=== PATIENT | male | born 1960 | race Caucasian/White ===

== ENCOUNTER 2017-11-08 10:08 | Day surgery (SDC) | payer OTHER ==
[~2017-11-08] VITALS: Ht 165.1 cm; Wt 91.0 kg
[~2017-11-08 10:08] MED LIST: ACET500 PO; ALBU90OI INH; ALLO100 PO; ANDROGEL1.25 GM TD; ANDROGEL2.5 GM TD; ARIP20 PO; ASCO500 PO; ASPI81CH PO; Advil100 MG PO; Androgel5 GM TOP; B Complex #11 EACH PO; BACL10 PO; BACL20 PO; BUME2 PO; CALCAVITD PO; CALCIUM 500 +1 EAC2 PO; CALCIUM WITH V1 EACH PO; CARV25 PO; CARV6.25 PO; CHLO4 PO; CHOL10002 PO; CLARITIN10 MG PO; COLCHICINE0.6 MG PO; COLCRYS0.6 MG PO; Calcarb 600 W-1 EACH PO; DOCU100 PO; DULO60; DULO60 PO; Desyrel50 MG PO; FAMO20 PO; FINA5 PO; FISH1000 PO; FLAX PO; FURO40 PO; Fish Oil500 MG PO; Flonase 0.05% N16 GM; HYDACE10B PO; HYDHCL25 PO; Hydrocodone-Ap1 EA20 PO; INDO25 PO; K-Tab10 MEQ PO; LORA10 PO; MAGOXI400 PO; MEGA BIOTIN10000 MCG PO; METPRE4 PO; MOMENI; MORP15ER PO; MORP30ER PO; MORP60ER PO; MOVANTIK12.5 MG PO; Morphine Sulfat15 MG PO; NAPR220 PO; NITR.4SL SL; NITR.6SL SL; NYSTRITC TOP; POTA10T PO; Percocet 5-3251 EACH PO; RANI150 PO; SIME80CH PO; SPIR25 PO; Selenium100 MCG PO; Senna Plus Tab1 EACH PO; THEO PO; THEO400ER PO; TOPI50 PO; TRANYLCYPROMINE10 MG; TRANYLCYPROMINE10 MG PO; TRAZ150T57; VALS80 PO; Vitamin B Comple1 EA PO; Zofran Odt8 MG SL; [UNRECOGNIZED DRUG - OTHER] PO; [UNRECOGNIZED DRUG - OTHER] PO
== END 2017-11-08 22:45 | disposition home or self-care (01) ==
LOC: MHTC 10:08
PROC: 3E033TZ Introduction of Destructive Agent into Peripheral Vein, Percutaneous Approach (ICD-10-PCS; principal; 2017-11-08)
DX: I83.891 Varicose veins of right lower extremity with other complications (principal); I87.2 Venous insufficiency (chronic) (peripheral); I50.9 Heart failure, unspecified
CPT/HCPCS: 36466; 99152; J2250; J3010; J7030; J7040

== ENCOUNTER → 2021-03-20 | Outpatient (CLI) | payer OTHER ==
[2021-03-20 19:38] LABS: Phosphorus, Urine 49.3 mg/dL (20.0-60.0)
[2021-03-20 19:48] LABS: Protein, Urine Quantitative 8.1 mg/dL (0.0-11.9)
[2021-03-20 19:50] LABS: Microalbumin, Urine Quant. 5.1 mg/L (0.000-20.000)
== END | disposition home or self-care (01) ==
LOC: LAB SHORT 10:00
PROVIDERS: Internal Medicine Nephrology
DX: N18.2 Chronic kidney disease, stage 2 (mild) (principal); D63.1 Anemia in chronic kidney disease; N25.81 Secondary hyperparathyroidism of renal origin; E55.9 Vitamin D deficiency, unspecified; E78.00 Pure hypercholesterolemia, unspecified; R76.9 Abnormal immunological finding in serum, unspecified; R94.5 Abnormal results of liver function studies; G60.9 Hereditary and idiopathic neuropathy, unspecified
CPT/HCPCS: 81050; 82043; 82570; 83935; 84105; 84156

== ENCOUNTER 2021-12-12 08:09 | Inpatient (IN) | payer OTHER ==
[~2021-12-12] VITALS: Ht 165.1 cm; Wt 90.7 kg
[~2021-12-12 08:09] MED LIST changes: -B Complex #11 EACH PO; -CLARITIN10 MG PO; +INDOCIN PO; +LORA10ER PO; -THEO PO; +THEO400 PO
[2021-12-12 10:50] LABS: Albumin, Blood 3.5 g/dL (3.4-5.0); Albumin/Globulin Ratio 0.8 (0.8-1.8); Bilirubin, Total 0.4 mg/dL (0.1-1.0); Bun/Creatinine Ratio 30.6 (12.0-20.0); Calcium, Blood 9.4 mg/dL (8.5-10.1); Creatinine, Blood 0.69 mg/dL (0.60-1.20); Globulin, Blood 4.5 g/dL (2.2-4.0); Magnesium, Blood 2.5 mg/dL (1.6-2.4); Potassium, Blood 4.3 mmol/L (3.5-5.5)
[2021-12-12 11:09] LABS: BASOPHILS ABSOLUTE AUTO 0.04 K/mm3 (0.00-0.23); BASOPHILS PERCENT AUTO 1 % (0-2); EOSINOPHILS ABSOLUTE AUTO 0.35 K/mm3 (0.00-0.68); EOSINOPHILS PERCENT AUTO 6 % (0-6); Hemoglobin 12.7 g/dL (13.5-17.5); IMMATURE GRAN ABSOLUTE AUTO 0.05 K/mm3 (0.00-0.10); IMMATURE GRAN PERCENT AUTO 1 % (0-1); LYMPHOCYTES ABSOLUTE AUTO 1.02 K/mm3 (0.84-5.20); LYMPHOCYTES PERCENT AUTO 18 % (21-46); MONOCYTES PERCENT AUTO 16 % (4-13); Mean Corpuscular HGB 31.8 pg (26.0-34.0); Mean Corpuscular HGB Conc 31.8 g/dL (31.5-36.5); Mean Corpuscular Volume 100 fL (80-100); Mean Platelet Volume 10.5 fL (9.1-12.4); NEUTROPHILS PERCENT AUTO 59 % (41-73); Platelet Count 260 K/mm3 (150-400); RDW Coefficient Variation 13.7 % (11.7-14.2); RDW Standard Deviation 50.6 fL (35.1-46.3); White Blood Cell Count 5.76 K/mm3 (4.00-11.30)
[2021-12-12] MEDS ORDERED: BUME1 PO (18:04)
--- NOTE | 2021-12-12 18:45 | NUR ---
SHIFT SUMMARY PT ARRIVED INTHE ROOMAT 1800. HE IS PARALYSED IN HIS LEFT ARM AND VERY FRAGILE ON THAT SIDE.PT IS CHAIR BOUND AND ON 4L AT BASELINE. HE DENIES PAIN. HE HAS A LARGE ULCER ON HIS LOWER RIGHT LEG THAT HIS SAYS IS FROM HIS BLISTERS SSWELLING AND POPPING. RIGHT LEG +4 AND LEFT LEG +3 EDEMA AND PAINFUL. PT IS AXO X4. HE IS ABLE TO WALK 1 PERSON ASSISTANCE TO THE BATHROOM FOR BMS AND USES THE URINAL NEEDED. ALL MEDICATIONS UPDATED IN JUN. PT STATES THAT HE CANNOT LAY DOWN FLAT AND WOULD LIKE TO JUST REMAIN IN THE CHAIR SO BED WAS MOVED SO THAT PT COULD SLEEPIN IN THE CHAIR. CHAIR LOCKED IN PLACE, CALL LIHGT IN REACH AND IN THE ROOM.
--- NOTE | 2021-12-13 04:36 | NUR ---
SHIFT SUMMARY PT WAS ABLE TO SLEEP THROUGHOUT THE NIGHT. PT DID HAVE A 15 BEAT RUN OF VTACH, HOWEVER HE WAS ASYMPTOMATIC AND CONTINUED TO STAY ASLEEP. DR. LINDSAY WAS CONTACTED AND A [facility] LAB WAS ORDERED FOR THIS AM. STAYED WITH PT TONIGHT, SHE IS HIS CAREGIVER. IS CONCERNED WITH BEING PRESENT WHEN PT IS BEING GIVEN MEDICATIONS. PT HAS NO COMPLAINTS CURRENTLY. CALL LIGHT IS WITHIN HIS REACH.
[2021-12-13 05:30] LABS: BASOPHILS ABSOLUTE AUTO 0.06 K/mm3 (0.00-0.23); BASOPHILS PERCENT AUTO 1 % (0-2); EOSINOPHILS ABSOLUTE AUTO 0.31 K/mm3 (0.00-0.68); EOSINOPHILS PERCENT AUTO 6 % (0-6); Hematocrit 43.7 % (37.0-53.0); Hemoglobin 13.6 g/dL (13.5-17.5); IMMATURE GRAN ABSOLUTE AUTO 0.06 K/mm3 (0.00-0.10); IMMATURE GRAN PERCENT AUTO 1 % (0-1); LYMPHOCYTES ABSOLUTE AUTO 1.24 K/mm3 (0.84-5.20); LYMPHOCYTES PERCENT AUTO 26 % (21-46); MONOCYTES ABSOLUTE AUTO 0.72 K/mm3 (0.16-1.47); MONOCYTES PERCENT AUTO 15 % (4-13); Mean Corpuscular HGB 31.7 pg (26.0-34.0); Mean Corpuscular HGB Conc 31.1 g/dL (31.5-36.5); Mean Corpuscular Volume 102 fL (80-100); Mean Platelet Volume 10.7 fL (9.1-12.4); NEUTROPHILS ABSOLUTE AUTO 2.45 K/mm3 (1.96-9.15); NEUTROPHILS PERCENT AUTO 51 % (41-73); Platelet Count 278 K/mm3 (150-400); RDW Coefficient Variation 13.9 % (11.7-14.2); RDW Standard Deviation 52.3 fL (35.1-46.3); Red Blood Cell Count 4.29 M/mm3 (4.30-5.90); White Blood Cell Count 4.84 K/mm3 (4.00-11.30)
[2021-12-13 05:54] LABS: Bun/Creatinine Ratio 27.6 (12.0-20.0); Calcium, Blood 9.1 mg/dL (8.5-10.1); Creatinine, Blood 0.73 mg/dL (0.60-1.20); Magnesium, Blood 2.5 mg/dL (1.6-2.4); Potassium, Blood 3.8 mmol/L (3.5-5.5)
--- NOTE | 2021-12-13 16:49 | NUR ---
SHIFT SUMMARY PT IS AxOx4. PLEASANT AND COOPERATIVE WITH CARE. PT HAD ECHO PERFORMED TODAY. PT IS DIURESING WITH IV LASIX. BLE +2-3 THIS SHIFT. PT , TISH IN ROOM THIS SHIFT. IS PATIENT'S CAREGIVER, UPDATED ON PLAN OF CARE. PT REPORTS CHRONIC PAIN IN BACK/HIPS/NECK. MEDICATED PER EMAR. PT REPORTS. WOUND CARE PROVIDED ON RLE ULCER. PER PROFESSIONAL [employer]ENEFITS SALES CONSULTANT, HR SR AT 94 WITH BBB. PT CURRENTLY SITTING UP IN RECLINER. PT STATES HE "FEELS LIKE HE NEEDS PHYSICAL THERAPY," AND THAT HIS BACK IS "EXTRA STIFF AND SORE." VITALS REVIEWED. CALL LIGHT IN REACH. PT DENIES ANY NEEDS AT THIS TIME.
--- NOTE | 2021-12-13 21:47 | NUR ---
MIGRATORY WORKER CALLED AND STS PT HAVING SOME ST ELEVATION IN LEAD 3. EKG DONE, PER DR FLORES, AND RESULTS CALLED TO HER. DR ORDERED A TROPONIN LAB, BUT NO OTHER ORDERS AT THIS TIME.
--- NOTE | 2021-12-14 03:48 | NUR ---
SHIFT SUMMARY EMAIL ADMINISTRATOR CALLED EARLIER IN THE EVENING TO SAY THAT THE PT HAD SOME ST CHANGES ON HIS TELEMETRY. CALLED THE DR AND DID AN EKG AND HAD A TROPONIN DRAWN FROM LAB. NO OTHER ORDERS WERE GIVEN AT THAT TIME. PT ASYMPTOMATIC, RESTING IN HIS RECLINER WATCHING TV WITH HIS . PT DID COMPLAIN OF SOME BACK PAIN, WHICH IS NORMAL FOR HIM, AND WAS MEDICATED PER EMAR. PT RESTING COMFORTABLY AT THIS TIME AND HAS NO COMPLAINTS. CALL LIGHT IS WITHIN HIS REACH.
[2021-12-14 04:41] LABS: BASOPHILS ABSOLUTE AUTO 0.08 K/mm3 (0.00-0.23); BASOPHILS PERCENT AUTO 1 % (0-2); EOSINOPHILS ABSOLUTE AUTO 0.38 K/mm3 (0.00-0.68); EOSINOPHILS PERCENT AUTO 6 % (0-6); Hematocrit 45.1 % (37.0-53.0); Hemoglobin 14.1 g/dL (13.5-17.5); IMMATURE GRAN ABSOLUTE AUTO 0.08 K/mm3 (0.00-0.10); IMMATURE GRAN PERCENT AUTO 1 % (0-1); LYMPHOCYTES ABSOLUTE AUTO 1.25 K/mm3 (0.84-5.20); LYMPHOCYTES PERCENT AUTO 20 % (21-46); MONOCYTES ABSOLUTE AUTO 1.03 K/mm3 (0.16-1.47); MONOCYTES PERCENT AUTO 16 % (4-13); Mean Corpuscular HGB 31.6 pg (26.0-34.0); Mean Corpuscular HGB Conc 31.3 g/dL (31.5-36.5); Mean Corpuscular Volume 101 fL (80-100); Mean Platelet Volume 10.5 fL (9.1-12.4); NEUTROPHILS ABSOLUTE AUTO 3.56 K/mm3 (1.96-9.15); NEUTROPHILS PERCENT AUTO 56 % (41-73); Platelet Count 291 K/mm3 (150-400); RDW Coefficient Variation 13.7 % (11.7-14.2); RDW Standard Deviation 51.6 fL (35.1-46.3); Red Blood Cell Count 4.46 M/mm3 (4.30-5.90); White Blood Cell Count 6.38 K/mm3 (4.00-11.30)
[2021-12-14 05:06] LABS: Albumin, Blood 3.2 g/dL (3.4-5.0); Anion Gap 6 mmol/L (6-16); Blood Urea Nitrogen 24 mg/dL (8-24); Bun/Creatinine Ratio 27.8 (12.0-20.0); CO2, Blood 33 mmol/L (21-32); Calcium, Blood 9.3 mg/dL (8.5-10.1); Chloride, Blood 102 mmol/L (98-108); Creatinine, Blood 0.86 mg/dL (0.60-1.20); Glomerular Filtration Rate 97 (60-); Glucose, Blood 130 mg/dL (70-99); Magnesium, Blood 2.4 mg/dL (1.6-2.4); Phosphorus, Blood 3.2 mg/dL (2.5-4.9); Potassium, Blood 3.4 mmol/L (3.5-5.5); Sodium, Blood 141 mmol/L (136-145)
--- NOTE | 2021-12-14 15:32 | NUR ---
SHIFT SUMMARY PT SLEEPING DURING SHIFT REPORT AND DID NOT WANT PT WOKE. CONTINUED TO REFUSE PT CARE FOR VS AND MEDS UNTIL PT WAS AWAKE. P/T HERE AT BREAKFAST AND PT WOKE, DECLINING TO WORK WITH P/T D/T PAIN IN L ANKLE. NO INJURY TO ANKLE REPORTED. STATED THAT PT HAS HX OF GOUT AND PAIN IS POSSIBLY D/T GOUT FLARE UP. DR JURADO IN TO SEE AND ASSESS PT. XRAY OF L ANKLE ORDERED [facility] FOR URIC ACID LEVEL. CARDIOLOGY CONSULT CALLED TO DR CLARK THIS AM AT 1025 AND AGAIN THIS AFTERNOON AT 1530 DR CLARK STILL NOT HERE TO SEE PT. PT SLEEPING IN RECLINER CHAIR ALL NIGHT AND DAY; DOES NOT LIKE TO SLEEP IN BED. BLE'S VERY SWOLLEN FROM BEING DEPENDENT AROUND THE CLOCK. PT ENCOURAGED TO ELEVATE THEM AND PT ASSISTED BACK, BUT ONLY REMAINED RECLINED 5 MINS AND THEN SAT BACK UP, WITH FEET BACK DOWN ON FLOOR. PT'S ENCOURAGED TO NOTIFY STAFF OF URINE OUTPUT FOR CHARTING, RATHER THAN EMPTY URINAL HERSELF. HAS BEEN DOING THAT TODAY. DRSG TO R ANKLE CHANGED PER 'S REQUEST. REPORTED WOUND TO R ANKLE D/T LRG BLISTER FROM WEEPING EDEMA TO LE'S. PT MEDICATED PER EMAR FOR C/O PAIN "EVERYWHERE", INCLUDING NECK TO LOW BACK. RESTING QUIETY AT THIS TIME. DENIED FURTHER NEEDS. CALL LT IN REACH.
--- NOTE | 2021-12-15 05:20 | NUR ---
SHIFT SUMMARY AOX4. VSS. TELE NSR c BBB HR 99. REPORTS 4/10 CHRONIC PAIN IN BACK, HIPS, MEDICATED c SCHEDULED MS CONTIN & PT ABLE TO SLEEP WELL T/O NIGHT. DENIES N/V. REPORTS OCC DYSPNEA c MINIMAL ACTIVITY, INCLUDING MOVING IN CHAIR. SPO2 >92% ON 4L O2 OR CPAP WHILE ASLEEP. LS DIM c CRACKLES IN BASES. +3 EDEMA RLE, +2 EDEMA LLE. ENCOURAGED PT TO KEEP FEET ELEVATED WHILE IN RECLINER. STRICT I/O OBTAINED, CURRENTLY HAS 1790 URINE OUTPUT. AT BEDSIDE T/O NIGHT TO ASSIST c CARE. CALL LIGHT IN REACH, WILL MONITOR.
[2021-12-15 05:40] LABS: BASOPHILS ABSOLUTE AUTO 0.02 K/mm3 (0.00-0.23); BASOPHILS PERCENT AUTO 0 % (0-2); EOSINOPHILS ABSOLUTE AUTO 0.02 K/mm3 (0.00-0.68); EOSINOPHILS PERCENT AUTO 0 % (0-6); Hematocrit 40.5 % (37.0-53.0); Hemoglobin 12.9 g/dL (13.5-17.5); IMMATURE GRAN ABSOLUTE AUTO 0.08 K/mm3 (0.00-0.10); IMMATURE GRAN PERCENT AUTO 1 % (0-1); LYMPHOCYTES ABSOLUTE AUTO 0.44 K/mm3 (0.84-5.20); LYMPHOCYTES PERCENT AUTO 5 % (21-46); MONOCYTES ABSOLUTE AUTO 0.68 K/mm3 (0.16-1.47); MONOCYTES PERCENT AUTO 8 % (4-13); Mean Corpuscular HGB 31.9 pg (26.0-34.0); Mean Corpuscular HGB Conc 31.9 g/dL (31.5-36.5); Mean Corpuscular Volume 100 fL (80-100); Mean Platelet Volume 10.7 fL (9.1-12.4); NEUTROPHILS ABSOLUTE AUTO 7.63 K/mm3 (1.96-9.15); NEUTROPHILS PERCENT AUTO 86 % (41-73); Platelet Count 299 K/mm3 (150-400); RDW Coefficient Variation 13.4 % (11.7-14.2); Red Blood Cell Count 4.04 M/mm3 (4.30-5.90); White Blood Cell Count 8.87 K/mm3 (4.00-11.30)
[2021-12-15 06:03] LABS: Albumin, Blood 3.1 g/dL (3.4-5.0); Anion Gap 2 mmol/L (6-16); Blood Urea Nitrogen 29 mg/dL (8-24); Bun/Creatinine Ratio 33.9 (12.0-20.0); CO2, Blood 35 mmol/L (21-32); Chloride, Blood 102 mmol/L (98-108); Creatinine, Blood 0.86 mg/dL (0.60-1.20); Glomerular Filtration Rate 97 (60-); Glucose, Blood 114 mg/dL (70-99); Phosphorus, Blood 3.3 mg/dL (2.5-4.9); Potassium, Blood 4.1 mmol/L (3.5-5.5); Sodium, Blood 139 mmol/L (136-145)
--- NOTE | 2021-12-15 15:30 | NUR ---
SHIFT SUMMARY PT RESTING QUIETLY AT START OF SHIFT. IN RM NOT WANTING PT TO BE WOKE UP EARLY. PT IS VERY PLEASANT AND CO-OP WITH CARE. IMPROVING TODAY WITH GOOD URINE OUTPUT YESTERDAY. BP ALSO IMPROVED SOME. PT ABLE TO KEEP LE'S ELEVATED A GOOD PORTION OF THE NIGHT LAST NIGHT WHICH HE AND HIS REPORTED WAS VERY HELPFUL WITH THE SWELLING IN HIS LEGS. DR CLARK CALLED TO CK ON PT WELL; NEW ORDERS PLACED, SEE CHART. PT AWAKE MOST OF THE DAY TODAY AND VERY CHEERFUL, VISITING WITH AND STAFF. HR HAS BEEN WNL'S TODAY WELL; NO CALLS FROM TE[facility] REPORTING ELEVATED HR. PT DENIED FURTHER NEEDS. HOPING TO GO HOME SOON. CALL LT IN REACH.
--- NOTE | 2021-12-15 15:35 | NUR ---
Initial palliative care consult: Kyle is a 61 year old gentleman with a history of a TBI and L-sided injury at age 1, diaphragmatic paralysis, bipolar depression, chronic hypoxia with 4 l/min home O2 and bipap use, kyphosis, CHF, restrictive lung disease and an implanted spinal stimulator. He was admitted on 12/12/21 with a CHF exacerbation. Kyle is . He and his , Lary, live [place] two story house. They do not have any children. They have a large network of friends through their christianity. Kyle is a [employer]. He reports that he had been feeling quite poorly prior to this hospital admission. He states he has chronic pain that seems to be the worst in the mornings. He has a spinal stimulator and takes PO pain medications for his pain. He reports that he tries to ride his bike for exercise to help with his mobility and decrease his pain. He reports that he sleeps in a recliner at home and has done so for many years. He is independent with eating, dressing, and bathing. He reports a shower takes him about 30 minutes. His is willing to assist with bathing however he states that he would like to remain as independent as possible for as long as possible. He states his breathing has improved quite a bit during this admission. He has questions about medications and dosages for when he goes home. Explained that he will receive verbal and written instructions at discharge about his medications, follow up appointments, and general care at home. He states that he doesn't weigh himself daily at home anymore. "I like food too much and it's depressing." He states he can tell when he is starting to retain fluid based on his swelling and his breathing. Discussed ways to care for himself at home to help prevent a CHF exacerbation admission. He states that he is interested in the [facility] program when he goes home. Explained that the CM (per their note) has already contacted the [facility] program with his information. He reports he is very happy with the care he has received here. He has no further questions. He is a DNR and he has an AD on file from 2015 stating his wishes. PC to remain available for symptom management prn.
[2021-12-16 04:55] LABS: BASOPHILS ABSOLUTE AUTO 0.02 K/mm3 (0.00-0.23); BASOPHILS PERCENT AUTO 0 % (0-2); EOSINOPHILS ABSOLUTE AUTO 0.02 K/mm3 (0.00-0.68); EOSINOPHILS PERCENT AUTO 0 % (0-6); Hematocrit 40.3 % (37.0-53.0); Hemoglobin 12.7 g/dL (13.5-17.5); IMMATURE GRAN ABSOLUTE AUTO 0.11 K/mm3 (0.00-0.10); IMMATURE GRAN PERCENT AUTO 1 % (0-1); LYMPHOCYTES ABSOLUTE AUTO 0.63 K/mm3 (0.84-5.20); LYMPHOCYTES PERCENT AUTO 7 % (21-46); MONOCYTES PERCENT AUTO 9 % (4-13); Mean Corpuscular HGB 31.2 pg (26.0-34.0); Mean Corpuscular HGB Conc 31.5 g/dL (31.5-36.5); Mean Corpuscular Volume 99 fL (80-100); Mean Platelet Volume 10.5 fL (9.1-12.4); NEUTROPHILS ABSOLUTE AUTO 7.21 K/mm3 (1.96-9.15); NEUTROPHILS PERCENT AUTO 82 % (41-73); Platelet Count 278 K/mm3 (150-400); RDW Coefficient Variation 13.7 % (11.7-14.2); RDW Standard Deviation 49.4 fL (35.1-46.3); Red Blood Cell Count 4.07 M/mm3 (4.30-5.90); White Blood Cell Count 8.79 K/mm3 (4.00-11.30)
[2021-12-16 05:16] LABS: Albumin, Blood 2.9 g/dL (3.4-5.0); Anion Gap 4 mmol/L (6-16); Blood Urea Nitrogen 29 mg/dL (8-24); Bun/Creatinine Ratio 37.6 (12.0-20.0); CO2, Blood 33 mmol/L (21-32); Calcium, Blood 8.8 mg/dL (8.5-10.1); Chloride, Blood 102 mmol/L (98-108); Creatinine, Blood 0.77 mg/dL (0.60-1.20); Glomerular Filtration Rate 101 (60-); Glucose, Blood 126 mg/dL (70-99); Phosphorus, Blood 2.9 mg/dL (2.5-4.9); Potassium, Blood 3.8 mmol/L (3.5-5.5); Sodium, Blood 139 mmol/L (136-145)
[2021-12-16] MEDS ORDERED: ALLO100 PO (11:12)
--- NOTE | 2021-12-16 19:01 | NUR ---
END OF SHIFT SUMMARY: PATIENT REPORTED PAIN IN THIS BLE, BUT PATIENT REPORTED THAT THE PAIN IN IS LEFT ANKLE WAS IMPROVED. PATIENT WAS ABLE TO STAND AND WORK WITH PHYSICAL THERAPY. PATIENT ABLE TO STAND INDEPENDENTLY WITH FURNITURE BESIDE TO STABILIZE NEEDED. PATIENT CONTINUES TO HAVE CLEAR, YELLOW URINE. PATIENT CONTINUES TO REPORT IMPROVED BREATHING. NO SHORTNESS OF BREATH NOTED AT REST OR WITH ACTIVITY. PATIENT'S LUNG SOUNDS CLEAR THROUGHOUT THE SHIFT. PROVIDED PATIENT AND HIS WITH EDUCATION ABOUT HEART FAILURE, LOW SODIUM DIET AND FLUID RESTRICTION. THEY ARE RECEPTIVE AND OPEN TO LEARNING NEW INFORMATION TO BETTER MANAGE THE PATIENT'S HEALTH.
--- NOTE | 2021-12-17 17:44 | NUR ---
SHIFT SUMMARY NO ACUTE CHANGES DURING SHIFT. PT ALERT AND ORIENTED, FOLLOWS COMMANDS.PT REMAINS ON 4L NC, SPO2 > 92%. IV DIURETICS, TRANSITION TO PO TOMORROW IN ANTICIPATION OF D/C. FAMILY AT BEDSIDE MOST OF DAY. CALL LIGHT WITHIN REACH.
--- NOTE | 2021-12-18 04:45 | NUR ---
SHIFT SUMMARY NO ACUTE CHANGES THIS SHIFT. AOX3. VSS. TELEL NSR HR 73. DENIES N/V OR DYSPNEA. REPORTS 5/10 CHRONIC PAIN IN HIPS, BACK, NECK MEDICATED c SCHEDULED MS CONTIN & NO FURTHER PAIN REPORTED. PT SLEPT SOUNDLY T/O NIGHT. @BEDSIDE. PLAN TO DC HOME c HH TODAY. CALL LIGHT IN REACH & PT ABLE TO MAKE NEEDS KNOWN.
[2021-12-18 05:15] LABS: Bun/Creatinine Ratio 36.5 (12.0-20.0); Calcium, Blood 9.1 mg/dL (8.5-10.1); Creatinine, Blood 0.96 mg/dL (0.60-1.20)
--- NOTE | 2021-12-18 13:15 | NUR ---
MAHIN FROM DR. DELGADILLO TO GIVE METOPROLOL AND LOSARTAN IF MAP IS GREATER THAN 65.
[2021-12-18] MEDS ORDERED: METO25ER PO (17:26)
[2021-12-18] MEDS ORDERED: LOSA25 PO (17:28)
[2021-12-18] MEDS ORDERED: LASIX40 MG PO (17:30)
[2021-12-18] MEDS ORDERED: DELTASONE20 MG (17:33)
== END 2021-12-18 18:34 | disposition home health service (06) | DRG 292 ==
LOC: ER 08:09 → MEDS 08:10
PROVIDERS: Emergency Medicine; Internal Medicine; ADMIT Internal Medicine
DX: I50.21 Acute systolic (congestive) heart failure (principal); F31.30 Bipolar disorder, current episode depressed, mild or moderate severity, unspecified; J96.11 Chronic respiratory failure with hypoxia; L03.115 Cellulitis of right lower limb; I69.854 Hemiplegia and hemiparesis following other cerebrovascular disease affecting left non-dominant side; I50.32 Chronic diastolic (congestive) heart failure; Z66 Do not resuscitate; J98.6 Disorders of diaphragm; M10.9 Gout, unspecified; G89.29 Other chronic pain; I25.5 Ischemic cardiomyopathy; M25.572 Pain in left ankle and joints of left foot; E87.6 Hypokalemia; I44.7 Left bundle-branch block, unspecified; M41.9 Scoliosis, unspecified; E66.9 Obesity, unspecified; Z68.33 Body mass index [BMI] 33.0-33.9, adult; Z99.81 Dependence on supplemental oxygen; Z98.890 Other specified postprocedural states; Z88.8 Allergy status to other drugs, medicaments and biological substances; Z79.82 Long term (current) use of aspirin; Z79.899 Other long term (current) drug therapy
CPT/HCPCS: 36415; 71045; 73600; 80048; 80053; 80069; 83605; 83735; 83880; 84484; 84550; 85025; 93005; 93010; 93970; 94660; 94760; 94762; 96372; 96374; 97110; 97112; 97161; 97530; 99285-25; A9270; C8929; G0378; J1650; J1940; J7512; Q9957

== ENCOUNTER 2022-03-27 08:09 | Emergency (ER) | payer OTHER ==
[~2022-03-27] VITALS: Ht 165.1 cm; Wt 95.2 kg
[~2022-03-27 08:09] MED LIST changes: +BUME1 PO; +DELTASONE20 MG; +LASIX40 MG PO; +LOSA25 PO; +METO25ER PO
[2022-03-27 09:06] LABS: BASOPHILS ABSOLUTE AUTO 0.04 K/mm3 (0.00-0.23); BASOPHILS PERCENT AUTO 1 % (0-2); EOSINOPHILS ABSOLUTE AUTO 0.31 K/mm3 (0.00-0.68); EOSINOPHILS PERCENT AUTO 4 % (0-6); Hematocrit 37.4 % (37.0-53.0); Hemoglobin 11.8 g/dL (13.5-17.5); IMMATURE GRAN ABSOLUTE AUTO 0.09 K/mm3 (0.00-0.10); IMMATURE GRAN PERCENT AUTO 1 % (0-1); LYMPHOCYTES ABSOLUTE AUTO 0.67 K/mm3 (0.84-5.20); LYMPHOCYTES PERCENT AUTO 9 % (21-46); MONOCYTES ABSOLUTE AUTO 1.19 K/mm3 (0.16-1.47); MONOCYTES PERCENT AUTO 16 % (4-13); Mean Corpuscular HGB 32.2 pg (26.0-34.0); Mean Corpuscular HGB Conc 31.6 g/dL (31.5-36.5); Mean Corpuscular Volume 102 fL (80-100); Mean Platelet Volume 10.5 fL (9.1-12.4); NEUTROPHILS ABSOLUTE AUTO 5.16 K/mm3 (1.96-9.15); NEUTROPHILS PERCENT AUTO 69 % (41-73); Platelet Count 241 K/mm3 (150-400); RDW Coefficient Variation 14.2 % (11.7-14.2); RDW Standard Deviation 53.6 fL (35.1-46.3); Red Blood Cell Count 3.67 M/mm3 (4.30-5.90); White Blood Cell Count 7.46 K/mm3 (4.00-11.30)
[2022-03-27 09:31] LABS: Albumin, Blood 3.1 g/dL (3.4-5.0); Albumin/Globulin Ratio 0.8 (0.8-1.8); Bilirubin, Total 0.3 mg/dL (0.1-1.0); Bun/Creatinine Ratio 18.8 (12.0-20.0); Calcium, Blood 8.9 mg/dL (8.5-10.1); Creatinine, Blood 2.77 mg/dL (0.60-1.20); Globulin, Blood 4.1 g/dL (2.2-4.0); Total Protein, Blood 7.2 g/dL (6.4-8.2)
--- NOTE | 2022-03-27 10:50 | NUR ---
Met with pt's this morning after receiving consult from Dr. Phillips. Pt was brought into ER via ambualance for increased SOB, chest and shoulder pain, increased confusion and fluid volume overload. Pt is currently on the AIM program through [facility], and Gayatri Paz NP is following this patient, and I have updated her on pt's current status. Pt's most recent blood pressure is 58/38. He is laying on ED cot, at an almost 90 degree angle, with eyes closed, respirations even and unlabored. Biox remains around 94% on 4-6 L of 02 via n/c. Per JODI Zarco, pt just woke up and is speaking in full sentences, despite current BP reading. Per Dr. Phillips's report, pt is in Cardiogenic shock, and renal failure. Unable to print note at this time as it is not yet complete. Working with [facility] to get pt home with hospice today.
--- NOTE | 2022-03-27 14:08 | NUR ---
Pt going home with hospice today. [facility] was able to arrange for admission at 1500. Unfortunately there isn't a [facility] transport available any earlier than 1600 today. [place] and pt's are aware. Pt appears to be resting comfortably. remains at bedside, and Haroldo RN will continue with comfort medications as needed.
== END 2022-03-27 19:40 | disposition home or self-care (01) ==
LOC: ER 08:09
PROVIDERS: Physician Assistant
DX: R57.0 Cardiogenic shock (principal); I46.9 Cardiac arrest, cause unspecified; I50.1 Left ventricular failure, unspecified; Z88.8 Allergy status to other drugs, medicaments and biological substances; Z79.899 Other long term (current) drug therapy; Z79.82 Long term (current) use of aspirin
CPT/HCPCS: 71045; 80053; 83605; 83690; 83880; 84484; 85025; 93005; 93010; J2270; J7030